=== PATIENT | male | born 1945 | race Caucasian/White ===

== ENCOUNTER 2017-08-06 06:11 | Day surgery (SDC) | payer OTHER ==
--- NOTE | 2017-08-06 05:50 | PDANEPAE ---
ANE History of Present Illness 72 yo male with melanoma on L shoulder for wide local excision, no LN biopsy. ANE Past Medical History - Cardiovascular History Hx Hypertension: No Hx Arrhythmias: No Hx Chest Pain: No Hx Coronary Artery / Peripheral Vascular Disease: No Hx CHF / Valvular Disease: No Hx Palpitations: No - Pulmonary History Hx COPD: No Hx Asthma/Reactive Airway Disease: No Hx Recent Upper Respiratory Infection: No Hx Oxygen in Use at Home: No Hx Sleep Apnea: No Sleep Apnea Screening Result - Last Documented: Negative - Neurologic History Hx Cerebrovascular Accident: No Hx Seizures: No Hx Dementia: No Neurologic History Comment: L hand tremor - Endocrine History Hx Diabetes: No Hypothyroid: Yes - Renal History Hx Renal Disorders: Yes Renal History Comment: BPH - Liver History Hx Hepatic Disorders: No - Neurological & Psychiatric Hx Hx Neurological and Psychiatric Disorders: Yes Neurological / Psychiatric History Comment: tremor to left hand - Cancer History Hx Cancer: Yes Cancer History Comment: melanoma - Congenital Disorder History Hx Congenital Disorders: No - GI History Hx Gastrointestinal Disorders: No - Other Health History Other Health History: very sensitive to medications - Chronic Pain History Chronic Pain: No - Surgical History Prior Surgeries: none ANE Review of Systems Review of Systems: - Exercise capacity METS (RN): 6 METS - Systems Constitutional: Reports: no symptoms Cardiac: Reports: no symptoms Respiratory: Reports: no symptoms Gastrointestinal: Reports: no symptoms ANE Patient History - Allergies Allergies/Adverse Reactions: No Known Allergies Allergy (Verified 08/05/17 15:01) - Home Medications Home Medications: Levothyroxine 08/05/17 [Last Taken 08/06/17 04:00] - Anes Hx Anes Hx: no prior problems - Smoking Hx Smoking Status: Never smoked - Alcohol Use Alcohol Use: Occasionally (2/week) - Family Anes Hx Family Hx Anesthesia Complications: none ANE Labs/Vital Signs - Vital Signs Vital Signs: reviewed preoperatively; see RN documention for details Height: 177.8 cm Weight: 93.894 kg ANE Physical Exam - Airway Neck exam: FROM Mallampati Score: Class 2 Mouth exam: normal dental/mouth exam - Pulmonary Pulmonary: clear to auscultation - Cardiovascular Cardiovascular: regular rate and rhythym - ASA Status ASA Status: II ANE Anesthesia Plan Anesthesia Plan: GA with mask Total IV Anesthesia: Yes
[2017-08-06] MEDS ORDERED: ceFAZolin 2 GM/SWFI 2 GM/20 ML SYR IVP ONE (06:30)
[2017-08-06] MEDS ORDERED: LR 1,000 ML IV ONE (06:31)
[2017-08-06] MEDS ORDERED: LIDOCAINE 1% 2 ML INJ ID PRN (06:31)
[2017-08-06] MEDS ORDERED: LIDOCAINE 1% 2 ML INJ ONE (06:42)
[2017-08-06 06:51] VITALS: PULSE 62
[2017-08-06] MEDS ORDERED: BUPIVACAINE 0.5% 30 ML SDV ONE (07:02)
--- NOTE | 2017-08-06 07:11 | PDHPUP ---
History & Physical Update H&P update statement: This history and physical update is based on an assessment of the patient which was completed after admission or registration (within 24 hours), but prior to the surgery/procedure. H&P update: H&P reviewed & patient examined, no change in patient's condition since H&P completed
[2017-08-06] MEDS ORDERED: LIDOCAINE 1% 300 MG/30 ML SDV ONE (07:14)
[2017-08-06] MEDS ORDERED: LIDOCAINE 2% 5 ML SDV ONE (07:15)
[2017-08-06] MEDS ORDERED: PROPOFOL/EMULSION 500 MG/50 ML BOTTLE IV ONE (07:15)
[2017-08-06] MEDS ORDERED: DEXAMETHASONE 4 MG/ML VIAL ONE (07:15)
[2017-08-06] MEDS ORDERED: BACITRACIN ZINC 14.2 GM OINTTUBE TP ONE (07:48)
[2017-08-06] MEDS ORDERED: PROPOFOL 200 MG/20 ML VIAL ONE (08:05)
--- NOTE | 2017-08-06 08:18 | POSTOPPROG ---
Post Op Note Date of Operation: 08/06/17 Surgeon: Josie Turk Anesthesiologist: saleem Anesthesia: GET(General Endotracheal) Pre-op Diagnosis: malignant melanoma Post-op Diagnosis: same Indication: 72 yo with malignant melanoma Procedure: wle malignant melanoma Inf/Abcess present in the surg proc area at time of surgery?: No Specimen(s): short cephalad long lateral l shoulder
[2017-08-06] MEDS ORDERED: LR 500 ML IV PRN (08:25)
[2017-08-06] MEDS ORDERED: ONDANSETRON 4 MG/2 ML VIAL IVP PRN (08:25)
[2017-08-06] MEDS ORDERED: NALOXONE HCL 0.4 MG/ML INJ IVP PRN (08:25)
[2017-08-06] MEDS ORDERED: HYDROCODONE/APAP 5/325 TAB PO PRN (08:25)
[2017-08-06] MEDS ORDERED: fentaNYL 100 MCG/2 ML INJ IVP PRN (08:25)
[2017-08-06] MEDS ORDERED: ACETAMINOPHEN 500 MG TAB PO PRN (08:25)
[2017-08-06] MEDS ORDERED: ALBUTEROL 3 ML DEYVIAL IH PRN (08:25)
[2017-08-06] MEDS ORDERED: KETOROLAC 15 MG/1 ML SDV IVP ONE (08:26)
--- NOTE | 2017-08-06 08:27 | POSTANESTH ---
Post Anesthetic Evaluation Cardiovascular Status: Normal, Stable Respiratory Status: Normal, Stable Level of Consciousness/Mental Status: Can Participate in Eval, Mildly Sleepy, Arousable Pain Control: Adequate, Prn Tx Ordered Nausea/Vomiting Control: Adequate, Prn Tx Ordered Complications Possibly Related to Anesthesia: None Noted
[2017-08-06 08:30] VITALS: TEMP 97.5
--- NOTE | 2017-08-06 08:33 | GOP ---
[f rep st] OPERATIVE REPORT DATE OF OPERATION: 08/06/2017 SURGEON: Josie Turk MD ANESTHESIA: Monitored anesthesia care with IV sedation. ANESTHESIOLOGIST: Nohemi Jordan MD. PREOPERATIVE DIAGNOSIS: Malignant melanoma, left shoulder. POSTOPERATIVE DIAGNOSIS: Malignant melanoma, left shoulder. PROCEDURE PERFORMED: Wide local excision malignant melanoma, 5 x 3 x 1 cm. FINDINGS: SPECIMENS: Skin including fascia short cephalad, long posterior. ESTIMATED BLOOD LOSS: 10 cc. INDICATIONS: The patient is a 72-year-old, who was found to have malignant melanoma of his left shou lder. He presents for wide local excision, sentinel lymph node biopsy is not indicated. DESCRIPTION OF PROCEDURE: The patient was brought into the operating room, placed supine on the tabl e. Monitored anesthesia care with IV sedation was performed. He was bumped. His left shoulder was prepped and draped in the usual sterile fashion. I infiltrated the area with 20 cc of 0.5% Marcaine mixed with 1% lidocaine. I made an ellipse around the malignant melanoma, which I had marked preoper atively to obtain at least 1 cm margins in each direction and then created an ellipse so that this wo uld come together in a linear fashion. I dissected down through the subcutaneous tissue and then use d electrocautery to dissect down to the level of the fascia. It was marked short cephalad, long post erior. Hemostasis was achieved. The deep layer was closed with 3-0 Vicryl. The skin was closed wit h 3-0 Vicryl, followed by 4-0 Monocryl and then I put reinforcing sutures of 2-0 nylon since he will be traveling. Antibiotic ointment and a sterile dressing were applied. He was awakened in the opera ting room, transferred to PACU in stable condition. /[id number]/MODL
[2017-08-06] MEDS ORDERED: KETOROLAC 15 MG/1 ML SDV ONE (08:53)
[2017-08-06 09:29] VITALS: BP 120/72; RESP 13; O2SAT 95
== END 2017-08-06 09:37 | disposition home or self-care (01) ==
LOC: FSGY 06:11
PROVIDERS: ATTEND Surgery
PROC: 0XB30ZZ Excision of Left Shoulder Region, Open Approach (ICD-10-PCS; principal; 2017-08-06 07:30)
PROC: 0XQ Anatomical Regions, Upper Extremities, Repair (ICD-10-PCS; principal; 2017-08-06 07:30)
DX: C43.62 Malignant melanoma of left upper limb, including shoulder (principal); E03.9 Hypothyroidism, unspecified; Z79.82 Long term (current) use of aspirin; Z80.9 Family history of malignant neoplasm, unspecified
CPT/HCPCS: J0690; J1100; J1885; J2704